=== PATIENT | female | born 1945 | race Caucasian/White ===

== ENCOUNTER 2017-10-01 14:38 | Outpatient (CLI) | payer MEDICARE ==
--- NOTE | 2017-10-01 16:21 | RAD ---
KUB AND UPRIGHT PA CHEST: History: Abdominal pain. FINDINGS: The bowel gas pattern is nonobstructed. No radiopaque calculi. No signs of free air. There is some mi ld arthritic change of the spine and hips. PA CHEST: Heart is slightly enlarged. Lungs are clear of infiltrates. IMPRESSION: 1. No acute findings. 2. Mild cardiomegaly. POS: C
== END 2017-10-01 14:39 | disposition home or self-care (01) ==
LOC: SCSRAD 14:38
PROVIDERS: ATTEND Nurse Practitioner Family
DX: R10.30 Lower abdominal pain, unspecified (principal); I51.7 Cardiomegaly
CPT/HCPCS: 74022

== ENCOUNTER 2017-11-22 07:48 | Outpatient (CLI) | payer MEDICARE | END 2017-11-22 07:49 | disposition home or self-care (01) | LOC: BICMAMMO 07:48 | DX: Z12.31 Encounter for screening mammogram for malignant neoplasm of breast (principal) | CPT/HCPCS: 77063; 77067 ==

== ENCOUNTER 2018-07-15 11:05 | Outpatient (CLI) | payer MEDICARE ==
--- NOTE | 2018-07-15 12:13 | ULT ---
VENOUS DOPPLER ULTRASOUND OF THE RIGHT LOWER EXTREMITY: Date: 07/15/18 HISTORY: Pain in the right lower leg. TECHNIQUE: Matias scale ultrasound with color flow and spectral Doppler imaging of the deep venous systems of the lower extremities was performed bilaterally. FINDINGS: There is good flow, compression, and augmentation noted in the right common femoral, femoral, deep fe moral, popliteal, posterior tibial, and greater saphenous veins. IMPRESSION: No evidence of deep venous thrombosis in the right lower extremity. POS: OFF
== END 2018-07-15 11:06 | disposition home or self-care (01) ==
LOC: SCSULT 11:05
PROVIDERS: ATTEND Family Medicine
DX: M79.661 Pain in right lower leg (principal)

== ENCOUNTER 2018-11-26 11:40 | Outpatient (CLI) | payer MEDICARE | END 2018-11-26 11:41 | disposition home or self-care (01) | LOC: BICMAMMO 11:40 | PROVIDERS: ATTEND Family Medicine | DX: Z12.31 Encounter for screening mammogram for malignant neoplasm of breast (principal); R92.1 Mammographic calcification found on diagnostic imaging of breast | CPT/HCPCS: 77063; 77067 ==

== ENCOUNTER 2019-07-17 08:44 | Outpatient (CLI) | payer MEDICARE ==
--- NOTE | 2019-07-17 09:45 | RAD ---
3 views thoracic spine: 07/17/2019 COMPARISON: None HISTORY: Mid/upper back pain FINDINGS: At C4-5 and C5-C6 there is disc space narrowing and mild anterior osteophyte formation. The cervicothoracic junction appears intact. No anterolisthesis or retrolisthesis is seen. Thoracic pedicles appear intact on frontal imaging. Nilesh nt material overlies the left aspect of the L1 vertebral body. No thoracic spine fracture or evidence of dislocation. IMPRESSION: No acute osseous abnormality.
--- NOTE | 2019-07-17 09:54 | RAD ---
CERVICAL SPINE 4 VIEWS: DATE: 07/17/2019. COMPARISON: None. HISTORY: Mid and upper back pain, neck pain. FINDINGS: At C4-5, C5-6, and C6-7 there is disc space narrowing and anterior osteophyte formation. Multilevel bilateral facet and uncovertebral osteophyte formation noted, left greater than right, mos t prominent at C4-5 and C5-6. Open-mouth odontoid view and Fuchs view demonstrate no acute findings. IMPRESSION: Cervical spine degenerative change as described above. Transcribed Date/Time: 07/17/2019 10:31 AM
== END 2019-07-17 08:45 | disposition home or self-care (01) ==
LOC: SCSRAD 08:44
PROVIDERS: ATTEND Nurse Practitioner Family
DX: M54.6 Pain in thoracic spine (principal); M47.814 Spondylosis without myelopathy or radiculopathy, thoracic region
CPT/HCPCS: 72040; 72072

== ENCOUNTER 2020-09-08 08:01 | Outpatient (CLI) | payer MEDICARE ==
--- NOTE | 2020-09-08 09:22 | CT ---
CT ABDOMEN AND PELVIS WITH IV CONTRAST 09/08/2020 CLINICAL INFORMATION: Abdominal pain, mesenteric ischemia. COMPARISON: 10/25/2012 Technique: Multiple contiguous axial CT images are obtained through the abdomen and pelvis with IV contrast. Cor onal reformatted images are provided. FINDINGS: Lower Chest: Mild linear atelectasis versus scarring left lung base. Lung bases are otherwise clear. There is herniation of abdominal fat at the posterior medial right lung base. Vessels: Scattered vascular calcifications are seen in the abdominal aorta and involving the iliac ar teries. This examination was not obtained in arterial phase of imaging for adequate assessment of the arterial vessels. There is a vascular stent in the proximal celiac artery. The stent does appear patent based on this exam. Superior mesenteric artery origin is not well assessed due to slice selection. However, the remainder of the SMA does appear patent. The DO is small in caliber but kinney nt and similar to study in 2012. Abdomen: Portal vein:Patent Gallbladder: Within normal limits for CT imaging. Liver: Subcentimeter peripherally located low-density lesion anterior aspect medial segment left hepa tic lobe which was also present on study in 2012 which suggests a benign finding given stability over this period of time. Liver otherwise has a normal CT appearance. Spleen: within normal limits. Pancreas: within normal limits. Adrenals: within normal limits. Kidneys: within normal limits. Bowel: Few colonic diverticula are seen. Loops of bowel are normal in caliber. No bowel wall thickeni ng is present. Appendix: Not visualized, but there are no secondary signs to suggest appendicitis. Peritoneum: No ascites or free air; no fluid collection. Mesentery and Retroperitoneum: No enlarged mesenteric or retroperitoneal lymph nodes. Abdominal Wall: within normal limits. Pelvis: Reproductive Organs: Evidence of hysterectomy. Bladder: within normal limits. Bones: Bilateral hip osteoarthritis. There is minimal sclerosis at the superolateral aspect of the ri ght femoral head which is probably related to the degenerative changes as opposed to very early osteonecrosis; although, this cannot be entirely excluded. IMPRESSION: 1. No acute findings in the abdomen or pelvis. 2. Vascular stent in the celiac artery origin and proximally. The SMA origin is not well assessed, bu t the remainder the SMA is patent. Arterial vessels are difficult to adequately evaluate without arterial phase of imaging.
== END 2020-09-08 08:02 | disposition home or self-care (01) ==
LOC: BICCT 08:01
PROVIDERS: ATTEND Physician Assistant Medical
DX: K55.059 Acute (reversible) ischemia of intestine, part and extent unspecified (principal); R10.9 Unspecified abdominal pain; Z95.828 Presence of other vascular implants and grafts
CPT/HCPCS: 74177; 82565

== ENCOUNTER 2021-05-10 08:24 | Outpatient (CLI) | payer MEDICARE | END 2021-05-10 08:25 | disposition home or self-care (01) | LOC: BICMAMMO 08:24 | PROVIDERS: ATTEND Family Medicine | DX: Z12.31 Encounter for screening mammogram for malignant neoplasm of breast (principal) | CPT/HCPCS: 77063; 77067 ==

== ENCOUNTER 2021-09-04 11:24 | Outpatient (CLI) | payer MEDICARE ==
[2021-09-04 12:53] LABS: Hemoglobin 12.9 g/dL (12.0-15.5); Mean Corpuscular HGB CONC 33.6 g/dL (32.0-36.0); Mean Corpuscular Hemoglobin 32.3 pg (27.0-33.0); Mean Corpuscular Volume 96.2 fl (81.6-98.3); Mean Platelet Volume 10.9 fl (7.4-10.4); Platelet Count 161 10x3/uL (150-450); RBC Distribution Width 12.3 % (11.5-14.5); Red Blood Cell (RBC) Count 3.99 10x6/uL (3.90-5.03); White Blood Cell (WBC) Count 6.7 10x3/uL (3.5-10.5)
[2021-09-04 13:20] LABS: Anion Gap 12 mmol/L (10-20); BUN (Urea Nitrogen) 13 mg/dL (9.8-20.1); Calc. Creatinine Clearance 0 mL/min (70-130); Calcium 10.9 mg/dL (7.8-10.44); Carbon Dioxide 27 mmol/L (23-31); Chloride 106 mmol/L (98-107); Glucose 83 mg/dL (83-110); Potassium 3.8 mmol/L (3.5-5.1); Sodium 141 mmol/L (136-145)
[2021-09-05 00:58] LABS: SARS-CoV-2 PCR by NAA Not Detected (NotDetected)
== END 2021-09-04 11:25 | disposition home or self-care (01) ==
LOC: LABBT 11:24
PROVIDERS: ATTEND Orthopaedic Surgery
DX: Z01.818 Encounter for other preprocedural examination (principal); M23.204 Derangement of unspecified medial meniscus due to old tear or injury, left knee; Z20.822 Contact with and (suspected) exposure to COVID-19
CPT/HCPCS: 80048; 85027; 93005; U0003; U0005; 93010

== ENCOUNTER 2021-09-07 05:59 | Day surgery (SDC) | payer MEDICARE ==
[2021-09-06 11:56] VITALS: BMI 26.1
[2021-09-07] MEDS ORDERED: ceFAZolin 2 GM/DEX 5% 100 ML BAG ONE (06:08)
[2021-09-07] MEDS ORDERED: Lidocaine 2% w/Epinephrine 1:200K 20 ML VIAL ONE (06:23)
[2021-09-07] MEDS ORDERED: Lidocaine 1% PF 5 ML VIAL ONE (06:23)
[2021-09-07] MEDS ORDERED: Dexamethasone 20 MG/5 ML VIAL ONE (06:23)
[2021-09-07] MEDS ORDERED: ePHEDrine 50 MG/ML VIAL ONE (06:23)
[2021-09-07] MEDS ORDERED: Bupivacaine HCl 0.5%/Epinephrine 1:200,000/PF 30 ml Vial ONE (06:23)
[2021-09-07] MEDS ORDERED: Ondansetron PF 4 MG/2 ML Vial ONE (06:23)
[2021-09-07] MEDS ORDERED: PROPOFOL 200 MG/20 ML VIAL ONE (06:23)
[2021-09-07] MEDS ORDERED: Fentanyl 100 MCG/2 ML VIAL ONE (06:27)
[2021-09-07] MEDS ORDERED: PROPOFOL 20 ML ONE (06:55)
[2021-09-07] MEDS ORDERED: Lidocaine 1% (PF) 30 ML VIAL ONE (07:48)
== END 2021-09-07 10:35 | disposition home or self-care (01) ==
LOC: SDC 05:59
PROVIDERS: ATTEND Orthopaedic Surgery
PROC: 0SBD4ZZ Excision of Left Knee Joint, Percutaneous Endoscopic Approach (ICD-10-PCS; principal; 2021-09-07)
DX: S83.232A Complex tear of medial meniscus, current injury, left knee, initial encounter (principal); M11.262 Other chondrocalcinosis, left knee; Z79.82 Long term (current) use of aspirin; Z79.899 Other long term (current) drug therapy; X58.XXXA Exposure to other specified factors, initial encounter
CPT/HCPCS: J1100; J2001; J2405; J2704; J3010; J3490

== ENCOUNTER 2022-05-11 08:17 | Outpatient (CLI) | payer MEDICARE | END 2022-05-11 08:18 | disposition home or self-care (01) | LOC: BICMAMMO 08:17 | PROVIDERS: ATTEND Family Medicine | DX: Z12.31 Encounter for screening mammogram for malignant neoplasm of breast (principal) | CPT/HCPCS: 77063; 77067 ==